=== PATIENT | male | born 1985 | race Caucasian/White ===

== ENCOUNTER 2020-12-14 05:21 | Emergency (ER) | payer OTHER, SELFPAY ==
[2020-12-14] VITALS (19 sets, daily range): BP systolic 106–146; BP diastolic 61–86; PULSE 63–88; RESP 12–20; TEMP 36.2–37.1; O2SAT 97–100; BMI 19.9
--- NOTE | ~2020-12-14 | CT_ITS ---
EXAMINATION: CT ABDOMEN AND PELVIS WITHOUT CONTRAST CLINICAL INFORMATION: Flank pain. Discussed with Dr. Posey, patient has right flank pain. COMPARISON: None TECHNIQUE: Multidetector volumetric imaging was performed from the superior aspect of the liver through the pubic symphysis. Sagittal and coronal reformatted images were obtained on the technologist's workstation. This CT examination was performed using dose optimization techniques as appropriate, variously including the following: *Automated exposure control *Adjustment of mA and/or kV according to patient size (this includes techniques or standardized protocols for targeted exams where dose is matched to indication/reason for exam; i.e. extremities or head) *Use of iterative reconstruction technique DLP: 410 mGy-cm FINDINGS: LUNG BASES: The visualized lung bases are unremarkable. LIVER, GALLBLADDER, AND BILIARY TREE: The liver is normal in size, shape, and attenuation. No focal hepatic lesion or biliary ductal dilatation is present. The gallbladder is unremarkable with no evidence of radiopaque gallstones, gallbladder wall thickening, or obvious pericholecystic inflammatory changes. PANCREAS: Unremarkable. No acute inflammatory changes seen. SPLEEN: Unremarkable. ADRENAL GLANDS: Unremarkable. KIDNEYS AND URETERS: Multiple nonobstructing right renal calculi are seen. The larger calculi include a 3 mm mid pole calculus, an additional 3 mm mid pole calculus. Multiple nonobstructing left renal calculi. This includes a 2 mm calculus in the left midpole. There is amorphous increased density in the region of the renal pyramids, which may reflect component of medullary nephrocalcinosis. 0.7 cm hyperdense focus in the upper pole left kidney, indeterminate. There is mild right hydroureteronephrosis. There is a 3-4 mm calculus in the distal right ureter. BLADDER: Underdistended, not well evaluated. GASTROINTESTINAL TRACT: The small and large bowel are unremarkable. No pathologically enlarged dilated loops is seen. Stomach is partially distended. The appendix is not well-visualized. Tubular structure containing air in the right lower abdomen/pelvis, may reflect a nondistended appendix.. ABDOMINAL WALL: No significant hernia is appreciated. LYMPH NODES: No lymphadenopathy seen. VASCULAR: Normal caliber aorta. PELVIC VISCERA: Within normal limits. OSSEOUS STRUCTURES: No acute osseous abnormality seen. CT/CT abdomen pelvis wo con IMPRESSION: Due to technical issues, images are not available on PACS. A limited 'wet read was done on the CT scanner in the emergency room. Verbal report given to Dr. Posey in the ER at 9:30 AM. * Mild right hydroureteronephrosis, with a 3-4 mm calculus in the distal right ureter. *Multiple bilateral nonobstructing renal calculi, as detailed above. *Faint densities in the region of the renal pelvis bilaterally, probably represent component of medullary nephrocalcinosis. *Appendix is not clearly visualized. Tubular structure seen in the right lower quadrant/pelvis, could represent the appendix. No ha inflammatory changes seen. *There is a 0.7 cm hyperdense lesion in the upper pole left kidney, indeterminate. Recommend further evaluation with follow-up ultrasound. Alexia GÓMEZ will convey this finding to the clinician.
--- NOTE | ~2020-12-14 | FL_ITS ---
EXAMINATION: XR FLUOROSCOPY WITH IMAGES CLINICAL INFORMATION: Right retrograde exam COMPARISON: Previous CT of the abdomen and pelvis from earlier the same day TECHNIQUE: Fluoroscopy performed by Dr. Dougie Mackay. Fluoroscopy time: 0.5 minutes Dose: 6 mgy. 2 saved fluoroscopic images Images: 2 FINDINGS: Images demonstrate a right internal ureteral stent in satisfactory position. FL/FL guidance in OR IMPRESSION: Fluoroscopic guidance for right ureteral stent placement.
[2020-12-14] MEDS: ondansetron HCL 4 MG/2 ML VIAL IVPUSH (05:43)
[2020-12-14] MEDS: Ketorolac Tromethamine 15 MG/ML VIAL IVPUSH (05:43)
[2020-12-14] MEDS: 0.9 % Sodium Chloride 1,000 ML 999 ML IV (05:53)
--- NOTE | 2020-12-14 05:56 | ED_ITS ---
HPI - Abdominal Pain General Chief Complaint: Abdominal Pain Stated Complaint: R FLANK PAIN Time Seen by Provider: 12/14/20 05:34 Source: patient Mode of arrival: EMS History of Present Illness HPI narrative: 35-year-old male who presents with history of renal colic and states that his right flank pain started the previous night with radiation into the right groin prompting him to seek assistance at [facility] where he states that ?did not do anything? and then he was discharged. Patient describes significant right flank pain without diarrhea, fevers, chills but multiple episodes of nausea and vomiting. Otherwise, he denies any urinary pain or burning. Related Data Allergies Allergy/AdvReac Type Severity Reaction Status Date / Time morphine Allergy Facial Verified 12/14/20 07:28 Swelling Review of Systems Review of Systems Pertinent positives and negatives as stated in HPI 10 point review of systems is otherwise negative. Physical Exam Vital Signs: Vital Signs: Last Vital Signs Temp 98.7 F 12/14/20 07:08 Pulse 69 12/14/20 09:08 Resp 20 12/14/20 09:08 BP 124/72 12/14/20 09:08 Pulse Ox 97 12/14/20 09:08 Body Mass Index 19.9 VITAL SIGNS: Reviewed. GENERAL: Well developed, well nourished, significant distress. HEAD: Normocephalic/atraumatic EYES: PERRLA, EOMI OROPHARYNX: no oral lesions noted, posterior pharynx clear NECK: Supple, no adenopathy LUNGS: Normal breath sounds. No adventitious sounds or accessory muscle use. SpO2<97> CARDIOVASCULAR: Regular rate and rhythm without noted murmurs ABDOMEN: Soft, mild tenderness on palpation of right flank with negative Rovsing's and no rebound on palpation of McBurney's, non-distended with bowel sounds. NEUROLOGIC: Alert and oriented x 4. Course Course Course Narrative: This is a 35-year-old male with history and clinical presen tation most consistent with renal colic and less likely appendicitis or testicular torsion. Initial labs inconsistent with appendicitis and CT scan is pending. Patient continues to be medicated for pain as well as nausea. Signed out to Dr Posey with plan to f/u CT and consult Urology. MDM - Abdominal Pain Lab Data Result diagrams: 12/14/20 05:55 12/14/20 07:11 Labs: Lab Results 12/14/20 12/14/20 12/14/20 Range/Units 05:55 05:55 06:13 WBC 9.1 (4.8-10.8) X10*3/uL RBC 4.90 (4.60-5.80) X10*6/uL Hgb 14.3 (14.0-18.0) g/dl Hct 42.8 (42-52) % MCV 87.3 (80-98) fL MCH 29.2 (27.0-33.0) pg MCHC 33.4 (31.0-36.0) g/dl RDW 11.4 (11.0-16.0) % Plt Count 131 L (160-400) X10*3/uL MPV 12.3 (9.4-12.4) fL Immature Gran % (Auto) 0.4 (0.0-0.4) % Neut % (Auto) 68.4 (45-73) % Lymph % (Auto) 24.5 (20-40) % [place] % (Auto) 6.4 (2-11) % Eos % (Auto) 0.1 (0-4) % Baso % (Auto) 0.2 (0-2) % Lymph # (Auto) 2.2 (1.2-4.9) X10*3/uL [place] # (Auto) 0.6 (0.1-1.2) X10*3/uL Eos # (Auto) 0.0 (0.0-0.4) X10*3/uL Baso # (Auto) 0.0 (0.0-0.2) X10*3/uL Abs Immat Gran (auto) 0.04 H (0.00-0.03) X10*3/uL Absolute Neuts (auto) 6.2 (2.0-8.3) X10*3/uL Absolute Nucleated RBC 0.000 (0.0-0.012) X10*3/uL Nucleated RBC % (auto) 0.0 (0.0-0.2) /100WBC Hold Blue Top SEE NOTE Sodium (135-145) mmol/L Potassium (3.3-5.1) mmol/L Chloride (96-108) mmol/L Carbon Dioxide (22-29) mmol/L Anion Gap (12-20) BUN (9-16) mg/dL Creatinine (0.5-1.4) mg/dL Estim Creat Clear Calc Estimated GFR Random Glucose (60-115) mg/dL Calcium (8.4-10.2) mg/dL Total Bilirubin (0.0-1.0) mg/dL AST (5-37) U/L ALT (0-40) U/L Alkaline Phosphatase (39-117) U/L Total Protein (6.5-8.0) g/dL Albumin (3.5-5.0) g/dL Urine Color YELLOW Urine Appearance HAZY Urine pH >= 9.0 H (5.0-8.0) Ur Specific [place] 1.010 (1.005-1.025) Urine Protein 1+ H (NEG-TRACE) MG/DL Urine Glucose (UA) NEG (NEG) MG/DL Urine Ketones NEG (NEG) MG/DL Urine Blood 3+ H (NEG) Urine Nitrite NEG (NEG) Ur Leukocyte Esterase NEG (NEG) Urine RBC 76-150 H (0) /HPF Urine WBC 0-2 (0-4) /HPF Ur Squamous Epith Cells 1+ /LPF Amorphous Sediment 3+ /LPF Urine Bacteria NONE /LPF Urine Mucus 1+ /LPF 12/14/20 Range/Units 07:11 WBC (4.8-10.8) X10*3/uL RBC (4.60-5.80) X10*6/uL Hgb (14.0-18.0) g/dl Hct (42-52) % MCV (80-98) fL MCH (27.0-33.0) pg MCHC (31.0-36.0) g/dl RDW (11.0-16.0) % Plt Count (160-400) X10*3/uL MPV (9.4-12.4) fL Immature Gran % (Auto) (0.0-0.4) % Neut % (Auto) (45-73) % Lymph % (Auto) (20-40) % [place] % (Auto) (2-11) % Eos % (Auto) (0-4) % Baso % (Auto) (0-2) % Lymph # (Auto) (1.2-4.9) X10*3/uL [place] # (Auto) (0.1-1.2) X10*3/uL Eos # (Auto) (0.0-0.4) X10*3/uL Baso # (Auto) (0.0-0.2) X10*3/uL Abs Immat Gran (auto) (0.00-0.03) X10*3/uL Absolute Neuts (auto) (2.0-8.3) X10*3/uL Absolute Nucleated RBC (0.0-0.012) X10*3/uL Nucleated RBC % (auto) (0.0-0.2) /100WBC Hold Blue Top Sodium 142 (135-145) mmol/L Potassium 3.8 (3.3-5.1) mmol/L Chloride 108 (96-108) mmol/L Carbon Dioxide 26 (22-29) mmol/L Anion Gap 12 (12-20) BUN 17 H (9-16) mg/dL Creatinine 0.84 (0.5-1.4) mg/dL Estim Creat Clear Calc 108.3 Estimated GFR > 60 Random Glucose 98 (60-115) mg/dL Calcium 8.4 (8.4-10.2) mg/dL Total Bilirubin 0.4 (0.0-1.0) mg/dL AST 20 (5-37) U/L ALT 22 (0-40) U/L Alkaline Phosphatase 74 (39-117) U/L Total Protein 6.6 (6.5-8.0) g/dL Albumin 4.2 (3.5-5.0) g/dL Urine Color Urine Appearance Urine pH (5.0-8.0) Ur Specific [place] (1.005-1.025) Urine Protein (NEG-TRACE) MG/DL Urine Glucose (UA) (NEG) MG/DL Urine Ketones (NEG) MG/DL Urine Blood (NEG) Urine Nitrite (NEG) Ur Leukocyte Esterase (NEG) Urine RBC (0) /HPF Urine WBC (0-4) /HPF Ur Squamous Epith Cells /LPF Amorphous Sediment /LPF Urine Bacteria /LPF Urine Mucus /LPF PMFSH Past Medical History Source: nursing notes reviewed Social History Social History Advance Directives: No
[2020-12-14] MEDS: fentaNYL citrate/PF 100 MCG/2 ML VIAL 25 MCG IVPUSH ×3 (06:04→08:09)
[2020-12-14 06:06] LABS: MANUAL DIFF FLAG NO
[2020-12-14 06:12] LABS: Basophils Percent Auto 0.2 % (0-2); Eosinophils Percent Auto 0.1 % (0-4); Hematocrit 42.8 % (42-52); Hemoglobin 14.3 g/dl (14.0-18.0); Imm Gran Abs Auto 0.04 X10*3/uL (0.00-0.03); Imm Gran Pct Auto 0.4 % (0.0-0.4); Lymphocytes Absolute Auto 2.2 X10*3/uL (1.2-4.9); Lymphocytes Percent Auto 24.5 % (20-40); Mean Corpuscular HGB Conc 33.4 g/dl (31.0-36.0); Mean Corpuscular Hemoglobin 29.2 pg (27.0-33.0); Mean Corpuscular Volume 87.3 fL (80-98); Mean Platelet Volume 12.3 fL (9.4-12.4); Monocytes Absolute Auto 0.6 X10*3/uL (0.1-1.2); Monocytes Percent Auto 6.4 % (2-11); Neutrophils Absolute Auto 6.2 X10*3/uL (2.0-8.3); Neutrophils Percent Auto 68.4 % (45-73); Platelet Count 131 X10*3/uL (160-400); Red Cell Distribution Width 11.4 % (11.0-16.0); White Blood Count 9.1 X10*3/uL (4.8-10.8)
[2020-12-14 06:32] LABS: Glucose Urine UA NEG (NEG); Leukocyte Esterase Urine NEG (NEG); Nitrite Urine NEG (NEG); PH >= 9.0 (5.0-8.0); Urine Blood 3+ (NEG); Urine Ketones NEG (NEG)
[2020-12-14 06:53] LABS: Appearance Urine HAZY; Color Urine YELLOW; Urine Protein 1+ MG/DL (NEG-TRACE)
--- NOTE | 2020-12-14 07:22 | PC.NURSE ---
Patient went to CT at this time, patient reports no pain relief after the second dose of fentanyl
[2020-12-14 07:32] LABS: Squamous Epithelial Cell Urine 1+ /LPF; WBC Urine 0-2 /HPF (0-4)
[2020-12-14 07:33] LABS: Amorphous Sediment Urine 3+ /LPF; Mucus Urine 1+ /LPF
[2020-12-14 07:54] LABS: Alanine Aminotransferase 22 U/L (0-40); Albumin Level 4.2 g/dL (3.5-5.0); Alkaline Phosphatase 74 U/L (39-117); Anion Gap 12 (12-20); Aspartate Amino Transferase 20 U/L (5-37); Bilirubin Total 0.4 mg/dL (0.0-1.0); Blood Urea Nitrogen 17 mg/dL (9-16); Calcium 8.4 mg/dL (8.4-10.2); Carbon Dioxide 26 mmol/L (22-29); Chloride 108 mmol/L (96-108); Creatinine Clr Calc Pharmacy 108.3; Estimated Glomerular Filt Rate > 60; Glucose Random 98 mg/dL (60-115); Potassium 3.8 mmol/L (3.3-5.1); Sodium 142 mmol/L (135-145); Total Protein 6.6 g/dL (6.5-8.0)
[2020-12-14] MEDS: diphenhydrAMINE HCL 50 MG/ML VIAL 25 MG IVPUSH (08:56)
[2020-12-14] MEDS: LORazepam 2 MG/ML VIAL 1 MG IVPUSH (08:56)
[2020-12-14] MEDS: Metoclopramide HCl 10 MG/2 ML VIAL IVPUSH (08:57)
[2020-12-14] MEDS: methylPREDNISolone Sod Succ 125 MG/2 ML VIAL 60 MG IVPUSH (11:06)
[2020-12-14] MEDS: 0.9 % Sodium Chloride 2,000 ML 999 ML IV (11:10)
[2020-12-14] MEDS: HYDROmorphone HCl 1 MG/ML SYRINGE IVPUSH (11:25)
[2020-12-14 13:49] LABS: COVID-19 Test Negative (Negative)
--- NOTE | 2020-12-14 13:56 | P.CNUR_ITS ---
History of Present Illness Consult details Consult date: 12/14/20 Narrative: Sanjay is a pleasant male. [place]ian-speaking. Accompanied by his who is translating for him Recurrent stone former Pain came on last night. Right side. Associated nausea vomiting. Unable to keep orals down Is responsive to injectable pain medication otherwise pain is at an 8/10. Calcium 8.4 Imaging shows distal right ureteric 5 mm stone with hydroureteronephrosis Discussed intervention Plan for ureteroscopy laser lithotripsy and stent placement [facility] Social History Social History Advance Directives: No Meds Allergies Allergy/AdvReac Type Severity Reaction Status Date / Time morphine Allergy Facial Verified 12/14/20 07:28 Swelling Active Medications: Current Medications Generic Name Dose Route Start Last Admin Trade Name Freq PRN Reason Stop Dose Admin Pharmacy Consult 1 each 12/14/20 11:14 Consult Rx Perform Med Rec MISCELLANE ONCE PRN Consult order Home Medications Medication Instructions Recorded Confirmed Last Taken Type No Known Home Meds 12/14/20 12/14/20 Unknown History Physical Exam Vital Signs: Vital Signs: Last Vital Signs Temp 97.4 F 12/14/20 10:00 Pulse 68 12/14/20 10:00 Resp 18 12/14/20 10:00 BP 114/74 12/14/20 10:00 Pulse Ox 98 12/14/20 10:00 Body Mass Index 19.9 Const: General: cooperative, healthy appearing, comfortable and no acute distress Nutritional Appearance: average body habitus Orientation/ consciousness: oriented to person, oriented to place and oriented to time Eyes: General: appearance normal, both eyes and all related structures Chest: Chest palpation & inspection: normal inspection of the chest Resp: Effort & Inspection: normal respiratory effort Cardio: Rate: regular rate GI: Inspection: Yes normal to inspection Skin: Hair: normal Neuro: General: oriented to person, oriented to place and oriented to time Extrem: General: Yes normal to inspection Results Labs Result diagrams: 12/14/20 05:55 12/14/20 07:11 Labs: Abnormal lab results 12/14/20 12/14/20 12/14/20 Range/Units 05:55 06:13 07:11 Plt Count 131 L (160-400) X10*3/uL Abs Immat Gran (auto) 0.04 H (0.00-0.03) X10*3/uL BUN 17 H (9-16) mg/dL Urine pH >= 9.0 H (5.0-8.0) Urine Protein 1+ H (NEG-TRACE) MG/DL Urine Blood 3+ H (NEG) Urine RBC 76-150 H (0) /HPF Short CBC 12/14/20 Range/Units 05:55 WBC 9.1 (4.8-10.8) X10*3/uL Hgb 14.3 (14.0-18.0) g/dl Hct 42.8 (42-52) % Plt Count 131 L (160-400) X10*3/uL BMP 12/14/20 07:11 Sodium 142 Potassium 3.8 Chloride 108 Carbon Dioxide 26 BUN 17 H Creatinine 0.84 Calcium 8.4 Liver Function 12/14/20 Range/Units 07:11 Total Bilirubin 0.4 (0.0-1.0) mg/dL AST 20 (5-37) U/L ALT 22 (0-40) U/L Alkaline Phosphatase 74 (39-117) U/L Albumin 4.2 (3.5-5.0) g/dL Urine 12/14/20 Range/Units 06:13 Urine Color YELLOW Urine Appearance HAZY Urine pH >= 9.0 H (5.0-8.0) Ur Specific [place] 1.010 (1.005-1.025) Urine Protein 1+ H (NEG-TRACE) MG/DL Urine Glucose (UA) NEG (NEG) MG/DL All other labs normal. Assessment and Plan (1) Ureterolithiasis: Status: Acute Ureteroscopy We discussed the nature of the decision and reasonable alternatives for performing the above surgery. Interventions include chemical dissolution, ESWL, ureteroscopy with laser lithotripsy and stent placement, PCNL. Options such as medical therapy were discussed. The relative uncertainties and benefits related to each alternate procedure were adequately discussed. General surgical risks including, but not limited to, pain, bleeding, infection, myocardial infarction, pulmonary embolus, deep vein thrombosis and cerebrovascular accident which may result in further hospitalization were discussed. Full disclosure of the procedure as well as all major risks, benefits and complications were discussed including but not limited to damage to the urethra, bladder and kidney infection, damage to the ureter, stent migration or malposition, scarring to the renal pelvis, remnant stone fragments, subsequent stone passage with need for secondary procedures. The overall secondary procedure rate is approximately 10-15%. The success rate of the procedure was discussed. Success of the procedure in the short-term does not necessarily guarantee that long-term success will be maintained. Suitable follow up will need to be maintained. The patient showed understanding of discussion and wishes to proceed with - cystoscopy, retrograde, ureteroscopy, possible lithotripsy/stone basketing and stent on the right side
[2020-12-14] MEDS: levoFLOXacin 500 MG TABLET PO (16:29)
--- NOTE | 2020-12-14 16:38 | P.CONAN_ITS ---
[facility] Active Problems Active Problems: All Active Problems (Updated 12/14/20 @ 11:17 by Neli washburn DO) Abdominal pain (Acute) Nausea & vomiting (Acute) Ureterolithiasis (Acute) Social History Social History Advance Directives: No Meds Allergies Allergy/AdvReac Type Severity Reaction Status Date / Time morphine Allergy Facial Verified 12/14/20 07:28 Swelling Active Medications: Current Medications Generic Name Dose Route Start Last Admin Trade Name Freq PRN Reason Stop Dose Admin Pharmacy Consult 1 each 12/14/20 11:14 Consult Rx Perform Med Rec MISCELLANE ONCE PRN Consult order Home Medications Medication Instructions Recorded Confirmed Last Taken Type No Known Home Meds 12/14/20 12/14/20 Unknown History Exam Exam Date and Time: December 14, 2020 1638 Height,Weight and Vital Signs: Height 5 ft 9 in Weight 61.235 kg Last Vital Signs Temp 98.2 F 12/14/20 14:00 Pulse 68 12/14/20 14:00 Resp 18 12/14/20 14:00 BP 110/66 12/14/20 14:00 Pulse Ox 98 12/14/20 14:00 Pertinent Lab Results Pertinent Lab Results: Laboratory Tests 12/14/20 12/14/20 12/14/20 05:55 05:55 06:13 WBC 9.1 RBC 4.90 Hgb 14.3 Hct 42.8 MCV 87.3 MCH 29.2 MCHC 33.4 RDW 11.4 Plt Count 131 L MPV 12.3 Immature Gran % (Auto) 0.4 Neut % (Auto) 68.4 Lymph % (Auto) 24.5 [place] % (Auto) 6.4 Eos % (Auto) 0.1 Baso % (Auto) 0.2 Lymph # (Auto) 2.2 [place] # (Auto) 0.6 Eos # (Auto) 0.0 Baso # (Auto) 0.0 Abs Immat Gran (auto) 0.04 H Absolute Neuts (auto) 6.2 Absolute Nucleated RBC 0.000 Nucleated RBC % (auto) 0.0 Hold Blue Top SEE NOTE Sodium Potassium Chloride Carbon Dioxide Anion Gap BUN Creatinine Estim Creat Clear Calc Estimated GFR Random Glucose Calcium Total Bilirubin AST ALT Alkaline Phosphatase Total Protein Albumin Urine Color YELLOW Urine Appearance HAZY Urine pH >= 9.0 H Ur Specific [place] 1.010 Urine Protein 1+ H Urine Glucose (UA) NEG Urine Ketones NEG Urine Blood 3+ H Urine Nitrite NEG Ur Leukocyte Esterase NEG Urine RBC 76-150 H Urine WBC 0-2 Ur Squamous Epith Cells 1+ Amorphous Sediment 3+ Urine Bacteria NONE Urine Mucus 1+ COVID-19 (STEVE) COVID-19 Clin Com 12/14/20 12/14/20 07:11 13:25 WBC RBC Hgb Hct MCV MCH MCHC RDW Plt Count MPV Immature Gran % (Auto) Neut % (Auto) Lymph % (Auto) [place] % (Auto) Eos % (Auto) Baso % (Auto) Lymph # (Auto) [place] # (Auto) Eos # (Auto) Baso # (Auto) Abs Immat Gran (auto) Absolute Neuts (auto) Absolute Nucleated RBC Nucleated RBC % (auto) Hold Blue Top Sodium 142 Potassium 3.8 Chloride 108 Carbon Dioxide 26 Anion Gap 12 BUN 17 H Creatinine 0.84 Estim Creat Clear Calc 108.3 Estimated GFR > 60 Random Glucose 98 Calcium 8.4 Total Bilirubin 0.4 AST 20 ALT 22 Alkaline Phosphatase 74 Total Protein 6.6 Albumin 4.2 Urine Color Urine Appearance Urine pH Ur Specific [place] Urine Protein Urine Glucose (UA) Urine Ketones Urine Blood Urine Nitrite Ur Leukocyte Esterase Urine RBC Urine WBC Ur Squamous Epith Cells Amorphous Sediment Urine Bacteria Urine Mucus COVID-19 (STEVE) Negative COVID-19 Clin Com See Note Airway Mallampati Class: II TM Dist: >3cm Neck ROM: Full Loose/Missing/Broken Teeth: No Heart: RRR Lungs: NL Assessment and Plan Assessment Anesthesia Assessment: Anesthesia Plan Discussed and Chart Reviewed Final Anesthetic Review NPO: Yes ASA Class: II Final Preanesthetic Review: No Changes in Pt Med Stat, Meds/Allgs Chart Reviewed, Consent Obtained/Reviewed and Anes Risks/Benef Reviewed Patient Risk: Low Procedure Risk: Low Anesthetic Plan Anesthetic Plan: GA Disposition: Standard PACU
--- NOTE | 2020-12-14 16:41 | MHC.SHP ---
Pre-Procedural Eval Section A The patient is an INPATIENT: No Changes since office visit: No Cold of Flu in the past 2 weeks, No New Medical Problems, No Changes in Medication and No Patient answered all questions The History & Physical has been completed within 30 days and I have reviewed it.: Yes Section B Chief Complaint: R FLANK PAIN Allergies: Allergies Allergy/AdvReac Type Severity Reaction Status Date / Time morphine Allergy Facial Verified 12/14/20 07:28 Swelling Plan Diagnosis/Plan: Unchanged (right sided ureteroscopy, laser and stent) I have reviewed the history and physical and performed a pertinent physical examination on my patient. No changes have occurred unless specified.
[2020-12-14] MEDS: HYDROmorphone HCl 0.5 MG/0.5 ML SYRINGE IVPUSH (16:45)
--- NOTE | 2020-12-14 18:06 | P.OP_ITS ---
Operative Note Operative Note Date of Service: 12/14/20 Narrative: PreOperative Diagnosis: Distal right ureteric stone Post Operative Diagnosis: Distal right ureteric stone Procedure: - cystoscopy, retrograde - dilatation of ureteric orifice under fluoroscopy - ureteroscopy, stone basketing - stent placement Surgeon: Dr Dougie Mackay Anesthesia: General Indications for procedure: 35-year-old male. Admitted through emergency room with right-sided pain. This was not controlled with oral or IV medications. CT scan showed 2-3 mm distal ri ght ureteric stone and right mild to moderate hydroureteronephrosis. Creatinine elevated. Recommended intervention with stone basketing and removal of stone, and stent placement. Procedure: After informed consent was verified patient was brought to the operating placed in supine position. Anesthesia was administered per protocol. Patient was placed in modified dorsal lithotomy position and prepped and draped in a sterile fashion. Safety pause time-out and side of surgery confirmed. Antibiotics confirmed. Twenty-two Upper Sorbian cystoscope inserted per urethra. Right ureteric orifice was cannulated and retrograde performed. Filling defects seen. Sensor guidewire placed. Rigid ureteral scope placed. Stone was encountered. Using a 2.4 [place] 0 tip basket the stone was grasped and removed we sent for analysis. A 6 Upper Sor[place] by 24 cm stent was then placed using a regular 22 Upper Sor[place] cystoscope. Good coil seen in kidney and bladder. Bladder was emptied He tolerated the procedure well was extubated in operating room transferred in a stable condition to the recovery area. Pathology: Stone Drains: 6 Upper Sor[place] by 24 cm stent
[2020-12-14] MEDS: fentaNYL citrate/PF 100 MCG/2 ML VIAL 50 MCG IVPUSH (18:40)
[2020-12-14] MEDS: Acetaminophen 325 MG TABLET 975 MG PO (19:00)
[2020-12-14] MEDS: traMADoL HCL 50 MG TABLET PO (19:02)
[2020-12-14] MEDS: Phenazopyridine HCL 100 MG TABLET PO (19:03)
== END 2020-12-14 20:02 | disposition home or self-care (01) ==
PROVIDERS: Emergency Medicine; Urology; Emergency Provider Student in an Organized Health Care Education/Training Program
PROC: (CPT 52352; principal; 2020-12-14 17:10)
DX: N13.2 Hydronephrosis with renal and ureteral calculous obstruction (principal); Z20.822 Contact with and (suspected) exposure to COVID-19; R11.2 Nausea with vomiting, unspecified; Z87.442 Personal history of urinary calculi
CPT/HCPCS: 52352; 52332; 36415; 74176; 80053; 81001; 82365; 85025; 87635; 88300; 96360; 96361; 96374; 96375; 96376; 99284; 99285; C1769; C2617; J1170; J1200; J1885; J2060; J2250; J2405; J2765; J2930; J3010; Q9967

== ENCOUNTER 2020-12-17 11:25 | Emergency (ER) | payer OTHER, SELFPAY ==
--- NOTE | ~2020-12-17 | CT_ITS ---
EXAMINATION: CT ABDOMEN AND PELVIS WITHOUT CONTRAST CLINICAL INFORMATION: Status post right renal internal ureteric stent placement. COMPARISON: CT of the abdomen and pelvis done on 12/14/2020. TECHNIQUE: Multidetector volumetric imaging was performed from the superior aspect of the liver through the pubic symphysis. Sagittal and coronal reformatted images were obtained on the technologist's workstation. This CT examination was performed using dose optimization techniques as appropriate, variously including the following: *Automated exposure control *Adjustment of mA and/or kV according to patient size (this includes techniques or standardized protocols for targeted exams where dose is matched to indication/reason for exam; i.e. extremities or head) *Use of iterative reconstruction technique DLP: 345.0 mGy-cm FINDINGS: LUNG BASES: The visualized lung bases are unremarkable. LIVER, GALLBLADDER, AND BILIARY TREE: The liver is normal in size, shape, and attenuation. No focal hepatic lesion or biliary ductal dilatation is present. The gallbladder is unremarkable with no evidence of radiopaque gallstones, gallbladder wall thickening, or obvious pericholecystic inflammatory changes. PANCREAS: Unremarkable. SPLEEN: Unremarkable. ADRENAL GLANDS: Unremarkable. KIDNEYS AND URETERS: Multiple punctate bilateral 1 to 2 mm size nonobstructing renal calculi are present near the tip of the renal pyramids, similar to prior study. Previously documented right distal ureteric calculus and associated mild right-sided hydroureteronephrosis shows interval resolution, status post interval placement of right internal ureteric stent and likely interval removal of the calculus. Please correlate with detailed surgical history. There is no evidence of any perinephric or periureteric hematoma or inflammatory changes present. The position of the ureteric stent is satisfactory. No significant change within the left kidney and/or left renal collecting system since the prior study. BLADDER: Unremarkable. GASTROINTESTINAL TRACT: The small and large bowel are unremarkable. Nonvisualized appendix. There are radiopaque sutures identified at the level of the base of the cecum likely represent changes secondary to prior appendicectomy. ABDOMINAL WALL: No significant hernia is appreciated. LYMPH NODES: Normal. VASCULAR: Unremarkable. PELVIC VISCERA: Unremarkable. OSSEOUS STRUCTURES: Mild diffuse osteopenia. CT/CT abdomen pelvis wo con IMPRESSION: 1. Compared to most recent prior CT of the abdomen and pelvis dated 12/24/2020, previously documented distal right ureteric obstructing calculus and associated proximal right-sided hydroureteronephrosis show interval resolution. Status post right-sided internal ureteric stent placement showing satisfactory position. 2. Bilateral nonobstructing tiny punctate renal calculi, consistent with nephrocalcinosis. 3. Evidence of prior appendicectomy. Please correlate with clinical history. 4. No new abnormalities.
[2020-12-17 12:30] VITALS: BP 97/60; PULSE 82; RESP 19; TEMP 36.7; O2SAT 98; BMI 19.9
[2020-12-17 12:51] LABS: Glucose Urine UA NEG (NEG); Leukocyte Esterase Urine TRACE (NEG); Nitrite Urine NEG (NEG); PH 8.5 (5.0-8.0); UACC Culture Trigger YES; Urine Blood 3+ (NEG); Urine Ketones NEG (NEG)
[2020-12-17 12:54] LABS: Appearance Urine CLOUDY; Color Urine AMBER; Urine Protein 1+ MG/DL (NEG-TRACE)
[2020-12-17 13:00] LABS: Mucus Urine 1+ /LPF; RBC Urine TNTC /HPF (0); Squamous Epithelial Cell Urine TRACE /LPF
--- NOTE | 2020-12-17 14:55 | ED.GENADULT ---
HPI - General Adult General Chief complaint: General Medical Stated complaint: s/p surgery, pain,diarrhea Time Seen by Provider: 12/17/20 14:30 Source: patient Mode of arrival: ambulatory History of Present Illness HPI narrative: 35-year-old male with a recent past medical history I have right distal ureter stone S/P ureteroscopy with stent placement on 12/14/[address] Mackay presenting to the ED complaining of right-sided flank/RLQ abdominal pain radiating to groin since this morning with associated nausea and decreased p.o. intake. States residual pain since procedure however worsened today. Also reports dysuria and hematuria. Denies fever, chills, vomiting, diarrhea Onset (ago): day(s) Related Data Previous Rx's Medication Instructions Recorded phenazopyridine [Pyridium] 100 mg PO TID PRN 4 Days #12 tab 12/14/20 phenazopyridine [Pyridium] 100 mg PO TID PRN 4 Days #12 tab 12/14/20 tamsulosin 0.4 mg PO BEDTIME 14 Days #14 cap 12/14/20 tamsulosin 0.4 mg PO BEDTIME 14 Days #14 cap 12/14/20 tramadol 50 mg PO Q6H PRN #14 tab 12/14/20 tramadol 50 mg PO Q6H PRN #14 tab 12/14/20 lorazepam 2 mg tablet 1 mg PO Q6H PRN #12 tab 12/15/20 oxycodone-acetaminophen 5 mg-325 1 tab PO Q8H PRN 7 Days #10 tab 12/15/20 mg tablet Allergies Allergy/AdvReac Type Severity Reaction Status Date / Time morphine Allergy Facial Verified 12/14/20 07:28 Swelling Review of Systems Review of Systems: Constitutional: No Fever, No Chills, No Fatigue, No Malaise Cardiovascular: No Chest Pain, No SOB Respiratory: No Cough, No Dyspnea Gastrointestinal: + Nausea, No Vomiting, No Diarrhea, No Constipation, + Abdominal pain Genitourinary: + Dysuria, No Urinary Frequency, + Hematuria, + Flank Pain, No Urinary Flow Changes Musculoskeletal: No joint pain, No Myalgias, No Joint Swelling Skin: No Skin Lesions, No rash Yes all other systems are reviewed and are negative PMFSH Past Medical History Attestation statement: The following information was validated with the patient. Medical History (Updated 12/17/20 @ 16:30 by MARYAN Reed) Kidney stones Social History Social History Alcohol intake: never Smoking Status: Never smoker Use of substances other than those prescribed or required for medical reasons: No Advance Directives: No Physical Exam Vital Signs: Vital Signs: Last Vital Signs Temp 98.1 F 12/17/20 12:30 Pulse 57 12/17/20 16:22 Resp 16 12/17/20 16:22 BP 106/53 L 12/17/20 16:22 Pulse Ox 99 12/17/20 16:22 Body Mass Index 19.9 Const: General: cooperative, healthy appearing and no acute distress Orientation/consciousness: patient oriented x3 Limitations: no limitations HENMT: Head: Yes normal to inspection Ears: hearing grossly normal bilaterally General nose exam: Normal external nose present Face and sinus: Yes normal facial exam Eyes: General: appearance normal, both eyes and all related structures EOM: EOMs intact bilaterally Neck: Neck: Yes normal visual inspection and Yes no meningeal signs Resp: Effort & Inspection: normal respiratory effort Cardio: Rate: regular rate GI: Inspection: Yes normal to inspection Palpation (GI): Soft to palpation, Tenderness to palpation present (GI) in the RLQ and suprapubicly, no guarding and not rigid : Other: + right inguinal tenderness, no appreciable hernia. No testicular/scrotal tenderness/lesions/erythema or swelling General: Yes CVA tenderness on the right Scrotum: no inguinal hernias Skin: Rashes: no rashes Wounds: no wounds Neuro: General: patient oriented x3 and no meningeal signs Gait exam (Neuro): Normal gait present Extrem: General: Yes normal to inspection Course Course Course Narrative: -no leukocytosis, renal function WNL, labs otherwise unremarkable -UA with multiple RBCs as expected, not infected CT abdomen pelvis wo con IMPRESSION: 1. Compared to most recent prior CT of the abdomen and pelvis dated 12/24/2020, previously documented distal right ureteric obstructing calculus and associated proximal right-sided hydroureteronephrosis show interval resolution. Status post right-sided internal ureteric stent placement showing satisfactory position. 2. Bilateral nonobstructing tiny punctate renal calculi, consistent with nephrocalcinosis. 3. Evidence of prior appendicectomy. Please correlate with clinical history. 4. No new abnormalities. >> on re-evaluation patient reports symptomatic improvement, is playing on phone, requesting work note. Results discussed including strict return precautions and follow-up with Urology. He verbalized understanding states he will call tomorrow. Medical Decision Making MDM Narrative Medical decision making narrative: 35-year-old male with a recent past medical history I have right distal ureter stone S/P ureteroscopy with stent placement on 12/14/[address] Mackay presenting to the ED complaining of right-sided flank/RLQ abdominal pain radiating to groin since this morning with associated nausea and decreased p.o. intake. On exam VSS, NAD, physical exam as above. Concern for stent complications/migration vs postprocedural pain vs persistent stone/hydro vs UTI. Lower concern for appendicitis, testicular torsion/epididymitis/orchitis or hernia without testicular tenderness on exam and focal inguinal tenderness, whhic is likely from procedure Plan: Labs, UA, CT, IVF, pain control, reassess Lab Data Result diagrams: 12/17/20 14:54 12/17/20 14:54 Labs: Lab Results 12/17/20 12/17/20 12/17/20 Range/Units 12:43 14:54 14:54 WBC 6.4 (4.8-10.8) X10*3/uL RBC 5.50 (4.60-5.80) X10*6/uL Hgb 16.2 (14.0-18.0) g/dl Hct 47.1 (42-52) % MCV 85.6 (80-98) fL MCH 29.5 (27.0-33.0) pg MCHC 34.4 (31.0-36.0) g/dl RDW 11.3 (11.0-16.0) % Plt Count 161 (160-400) X10*3/uL MPV 11.0 (9.4-12.4) fL Immature Gran % (Auto) 0.2 (0.0-0.4) % Neut % (Auto) 57.8 (45-73) % Lymph % (Auto) 31.0 (20-40) % [place] % (Auto) 9.9 (2-11) % Eos % (Auto) 0.8 (0-4) % Baso % (Auto) 0.3 (0-2) % Lymph # (Auto) 2.0 (1.2-4.9) X10*3/uL [place] # (Auto) 0.6 (0.1-1.2) X10*3/uL Eos # (Auto) 0.1 (0.0-0.4) X10*3/uL Baso # (Auto) 0.0 (0.0-0.2) X10*3/uL Abs Immat Gran (auto) 0.01 (0.00-0.03) X10*3/uL Absolute Neuts (auto) 3.7 (2.0-8.3) X10*3/uL Absolute Nucleated RBC 0.000 (0.0-0.012) X10*3/uL Nucleated RBC % (auto) 0.0 (0.0-0.2) /100WBC Hold Blue Top Sodium 141 (135-145) mmol/L Potassium 4.8 D (3.3-5.1) mmol/L Chloride 102 (96-108) mmol/L Carbon Dioxide 28 (22-29) mmol/L Anion Gap 16 (12-20) BUN 15 (9-16) mg/dL Creatinine 0.76 (0.5-1.4) mg/dL Estim Creat Clear Calc 119.7 Estimated GFR > 60 Random Glucose 86 (60-115) mg/dL Calcium 10.1 D (8.4-10.2) mg/dL Total Bilirubin 0.7 (0.0-1.0) mg/dL Direct Bilirubin 0.2 (0.0-0.5) mg/dL AST 24 (5-37) U/L ALT 24 (0-40) U/L Alkaline Phosphatase 76 (39-117) U/L Total Protein 8.2 H D (6.5-8.0) g/dL Albumin 4.9 (3.5-5.0) g/dL Lipase 12 (8-78) U/L Urine Color [place] Urine Appearance CLOUDY Urine pH 8.5 H (5.0-8.0) Ur Specific [place] 1.020 (1.005-1.025) Urine Protein 1+ H (NEG-TRACE) MG/DL Urine Glucose (UA) NEG (NEG) MG/DL Urine Ketones NEG (NEG) MG/DL Urine Blood 3+ H (NEG) Urine Nitrite NEG (NEG) Ur Leukocyte Esterase TRACE H (NEG) Urine RBC TNTC H (0) /HPF Urine WBC 1-4 (0-4) /HPF Ur Squamous Epith Cells TRACE /LPF Urine Bacteria NONE /LPF Urine Mucus 1+ /LPF 12/17/20 Range/Units 14:54 WBC (4.8-10.8) X10*3/uL RBC (4.60-5.80) X10*6/uL Hgb (14.0-18.0) g/dl Hct (42-52) % MCV (80-98) fL MCH (27.0-33.0) pg MCHC (31.0-36.0) g/dl RDW (11.0-16.0) % Plt Count (160-400) X10*3/uL MPV (9.4-12.4) fL Immature Gran % (Auto) (0.0-0.4) % Neut % (Auto) (45-73) % Lymph % (Auto) (20-40) % [place] % (Auto) (2-11) % Eos % (Auto) (0-4) % Baso % (Auto) (0-2) % Lymph # (Auto) (1.2-4.9) X10*3/uL [place] # (Auto) (0.1-1.2) X10*3/uL Eos # (Auto) (0.0-0.4) X10*3/uL Baso # (Auto) (0.0-0.2) X10*3/uL Abs Immat Gran (auto) (0.00-0.03) X10*3/uL Absolute Neuts (auto) (2.0-8.3) X10*3/uL Absolute Nucleated RBC (0.0-0.012) X10*3/uL Nucleated RBC % (auto) (0.0-0.2) /100WBC Hold Blue Top SEE NOTE Sodium (135-145) mmol/L Potassium (3.3-5.1) mmol/L Chloride (96-108) mmol/L Carbon Dioxide (22-29) mmol/L Anion Gap (12-20) BUN (9-16) mg/dL Creatinine (0.5-1.4) mg/dL Estim Creat Clear Calc Estimated GFR Random Glucose (60-115) mg/dL Calcium (8.4-10.2) mg/dL Total Bilirubin (0.0-1.0) mg/dL Direct Bilirubin (0.0-0.5) mg/dL AST (5-37) U/L ALT (0-40) U/L Alkaline Phosphatase (39-117) U/L Total Protein (6.5-8.0) g/dL Albumin (3.5-5.0) g/dL Lipase (8-78) U/L Urine Color Urine Appearance Urine pH (5.0-8.0) Ur Specific [place] (1.005-1.025) Urine Protein (NEG-TRACE) MG/DL Urine Glucose (UA) (NEG) MG/DL Urine Ketones (NEG) MG/DL Urine Blood (NEG) Urine Nitrite (NEG) Ur Leukocyte Esterase (NEG) Urine RBC (0) /HPF Urine WBC (0-4) /HPF Ur Squamous Epith Cells /LPF Urine Bacteria /LPF Urine Mucus /LPF Discharge Plan Discharge Clinical Impression: Other acute postprocedural pain Patient Disposition: Home, Self-Care Instructions: Flank Pain (ED) Additional Instructions: Your blood work was reassuring today in the ED Your CT scan showed improvement of your previously obstructing stone, and your stent is in proper location. It is important for you to follow-up with urology, call tomorrow Stay hydrated at home Continue taking previously prescribed medications If symptoms persist or worsen, he had of fever, nausea/vomiting, pain comes unbearable return to the ED Prescriptions: No Action oxycodone-acetaminophen [Percocet] 5-325 mg tablet 1 tab PO Q8H PRN (Reason: pain) 7 Days Qty: 10 RF: 0 lorazepam [Ativan] 2 mg tablet 1 mg PO Q6H PRN (Reason: anxiety) Qty: 12 RF: 0 phenazopyridine [Pyridium] 100 mg tablet 100 mg PO TID PRN (Reason: spasm) 4 Days Qty: 12 RF: 0 tramadol 50 mg tablet 50 mg PO Q6H PRN (Reason: pain (scale score 4-6)) Qty: 14 RF: 0 tamsulosin 0.4 mg capsule 0.4 mg PO BEDTIME 14 Days Qty: 14 RF: 0 phenazopyridine [Pyridium] 100 mg tablet 100 mg PO TID PRN (Reason: spasm) 4 Days Qty: 12 RF: 0 tramadol 50 mg tablet 50 mg PO Q6H PRN (Reason: pain (scale score 4-6)) Qty: 14 RF: 0 tamsulosin 0.4 mg capsule 0.4 mg PO BEDTIME 14 Days Qty: 14 RF: 0 Referrals: Dougie Mackay MD [Physician] - 2 days
[2020-12-17] MEDS: 0.9 % Sodium Chloride 1,000 ML 999 ML IVCONT (14:57)
[2020-12-17] MEDS: Ketorolac Tromethamine 15 MG/ML VIAL IVPUSH (14:57)
[2020-12-17] MEDS: ondansetron HCL 4 MG/2 ML VIAL IVPUSH (14:57)
[2020-12-17 14:58] LABS: MANUAL DIFF FLAG NO
[2020-12-17 14:59] LABS: Basophils Percent Auto 0.3 % (0-2); Eosinophils Absolute Auto 0.1 X10*3/uL (0.0-0.4); Eosinophils Percent Auto 0.8 % (0-4); Hematocrit 47.1 % (42-52); Hemoglobin 16.2 g/dl (14.0-18.0); Imm Gran Abs Auto 0.01 X10*3/uL (0.00-0.03); Imm Gran Pct Auto 0.2 % (0.0-0.4); Mean Corpuscular HGB Conc 34.4 g/dl (31.0-36.0); Mean Corpuscular Hemoglobin 29.5 pg (27.0-33.0); Mean Corpuscular Volume 85.6 fL (80-98); Monocytes Absolute Auto 0.6 X10*3/uL (0.1-1.2); Monocytes Percent Auto 9.9 % (2-11); Neutrophils Absolute Auto 3.7 X10*3/uL (2.0-8.3); Neutrophils Percent Auto 57.8 % (45-73); Platelet Count 161 X10*3/uL (160-400); Red Cell Distribution Width 11.3 % (11.0-16.0); White Blood Count 6.4 X10*3/uL (4.8-10.8)
[2020-12-17 15:31] LABS: Alanine Aminotransferase 24 U/L (0-40); Albumin Level 4.9 g/dL (3.5-5.0); Alkaline Phosphatase 76 U/L (39-117); Anion Gap 16 (12-20); Aspartate Amino Transferase 24 U/L (5-37); Bilirubin Direct 0.2 mg/dL (0.0-0.5); Bilirubin Total 0.7 mg/dL (0.0-1.0); Blood Urea Nitrogen 15 mg/dL (9-16); Calcium 10.1 mg/dL (8.4-10.2); Carbon Dioxide 28 mmol/L (22-29); Chloride 102 mmol/L (96-108); Creatinine Clr Calc Pharmacy 119.7; Estimated Glomerular Filt Rate > 60; Glucose Random 86 mg/dL (60-115); Lipase 12 U/L (8-78); Potassium 4.8 mmol/L (3.3-5.1); Sodium 141 mmol/L (135-145); Total Protein 8.2 g/dL (6.5-8.0)
[2020-12-17 16:22] VITALS: BP 106/53; PULSE 57; RESP 16; O2SAT 99
== END 2020-12-17 16:45 | disposition home or self-care (01) ==
PROVIDERS: Physician Assistant; Emergency Provider Emergency Medicine Emergency Medical Services; PCP Internal Medicine
DX: T83.84XA Pain due to genitourinary prosthetic devices, implants and grafts, initial encounter (principal); R10.31 Right lower quadrant pain; X58.XXXA Exposure to other specified factors, initial encounter; Z87.442 Personal history of urinary calculi
CPT/HCPCS: 36415; 74176; 80048; 80076; 81001; 81003; 83690; 85025; 87086; 96361; 96374; 96375; 99284; J1885; J2405

== ENCOUNTER → 2020-12-22 12:54 | Outpatient (BNVA) | payer OTHER, SELFPAY | PROVIDERS: PCP Internal Medicine; Visit Provider Urology | DX: N20.0 Calculus of kidney (principal) | CPT/HCPCS: 52310; 99212 ==

== ENCOUNTER 2022-06-30 18:16 | Emergency (ER) | payer OTHER, SELFPAY ==
[2022-06-30] VITALS (7 sets, daily range): BP systolic 103–119; BP diastolic 47–62; PULSE 52–88; RESP 11–24; TEMP 35.8–37.1; O2SAT 94–100; BMI 22.4
--- NOTE | ~2022-06-30 | CT_ITS ---
EXAMINATION: CT ABDOMEN AND PELVIS WITHOUT CONTRAST CLINICAL INFORMATION: Right flank pain. Question stone COMPARISON: CT abdomen and pelvis 12/17/2020 TECHNIQUE: Multidetector volumetric imaging was performed from the superior aspect of the liver through the pubic symphysis. Sagittal and coronal reformatted images were obtained on the technologist's workstation. This CT examination was performed using dose optimization techniques as appropriate, variously including the following: *Automated exposure control *Adjustment of mA and/or kV according to patient size (this includes techniques or standardized protocols for targeted exams where dose is matched to indication/reason for exam; i.e. extremities or head) *Use of iterative reconstruction technique DLP: 413 mGy-cm FINDINGS: LUNG BASES: The visualized lung bases are unremarkable. LIVER, GALLBLADDER, AND BILIARY TREE: The liver is normal in size, shape, and attenuation. No focal hepatic lesion or biliary ductal dilatation is present. The gallbladder is unremarkable with no evidence of radiopaque gallstones, gallbladder wall thickening, or obvious pericholecystic inflammatory changes. PANCREAS: Unremarkable. SPLEEN: Unremarkable. ADRENAL GLANDS: Unremarkable. KIDNEYS AND URETERS: 2-3 mm right proximal ureteral calculus. Mild right hydronephrosis. No perinephric stranding. No additional ureteral calculi. Couple of punctate 1-2 mm nonobstructing calculi in the right lower pole. Small 2 mm nonobstructing left upper pole renal calculus. 6 mm hyperdense left upper pole renal lesion, unchanged, too small to characterize, likely a small hyperdense cyst. No other renal lesion. BLADDER: Unremarkable. GASTROINTESTINAL TRACT: Suture material at the cecal base consistent with prior appendectomy. Correlate with surgical history. No dilated bowel loops. No bowel wall thickening. No ascites or free air. ABDOMINAL WALL: No significant hernia is appreciated. LYMPH NODES: No lymphadenopathy. VASCULAR: Normal caliber abdominal aorta. PELVIC VISCERA: Unremarkable. OSSEOUS STRUCTURES: No acute fracture or suspicious osseous lesion. Chronic bilateral L5 pars defects with minimal grade 1 [address]hesis at L5-S1. CT/CT abdomen pelvis wo IV con IMPRESSION: 1. 2-3 mm right proximal ureteral calculus with mild right hydronephrosis. 2. Small nonobstructing bilateral renal calculi.
--- NOTE | 2022-06-30 18:25 | ED_ITS ---
HPI - Abdominal Pain General Chief Complaint: Abdominal Pain Stated Complaint: KIDNEY PAIN Time Seen by Provider: 06/30/22 18:24 Source: patient Mode of arrival: EMS Limitations: no limitations History of Present Illness HPI narrative: Patient with history of kidney stone comes here with r flank pain started an luis r prior to arrival with nausea pain radiating to the right lower abdomen no fever no chills no hematuria Related Data Previous Rx's Medication Instructions Recorded phenazopyridine 100 mg tablet 100 mg PO TID PRN spasm 4 days #12 12/14/20 (Pyridium) tabs phenazopyridine 100 mg tablet 100 mg PO TID PRN spasm 4 days #12 12/14/20 (Pyridium) tabs tamsulosin 0.4 mg capsule 0.4 mg PO BEDTIME 14 days #14 caps 12/14/20 tamsulosin 0.4 mg capsule 0.4 mg PO BEDTIME 14 days #14 caps 12/14/20 tramadol 50 mg tablet 50 mg PO Q6H PRN pain (scale score 12/14/20 4-6) #14 tabs tramadol 50 mg tablet 50 mg PO Q6H PRN pain (scale score 12/14/20 4-6) #14 tabs lorazepam 2 mg tablet (Ativan) 1 mg PO Q6H PRN anxiety #12 tabs 12/15/20 oxycodone-acetaminophen 5 mg-325 1 tab PO Q8H PRN pain 7 days #10 12/15/20 mg tablet (Percocet) tabs pyridoxine (vitamin B6) 100 mg 100 mg PO DAILY 90 days #90 tabs 12/22/20 tablet oxycodone 5 mg tablet 5 mg PO Q6H PRN pain #20 tabs 06/30/22 tamsulosin 0.4 mg capsule (Flomax) 0.4 mg PO BEDTIME #7 caps 06/30/22 Allergies Allergy/AdvReac Type Severity Reaction Status Date / Time morphine Allergy Facial Verified 12/14/20 07:28 Swelling Review of Systems Review of Systems Yes all other systems are reviewed and are negative [facility] Past Medical History Medical History Kidney stones Social History Social History Alcohol intake: never Advance Directives: No Advance Directives Information Provided: No Physical Exam ED Vital Signs: Vital Signs - 24 hr 06/30/22 18:24 06/30/22 18:50 06/30/22 19:58 Temperature 98.5 F 98.5 F 96.5 F L Pulse Rate 71 67 52 Respiratory Rate 20 18 12 Blood Pressure 119/47 L 119/47 L 103/60 Pulse Oximetry 99 98 96 Oxygen Delivery Method Room Air Room Air Room Air 06/30/22 20:52 06/30/22 20:54 06/30/22 22:19 Temperature 98.7 F Pulse Rate 85 64 69 Respiratory Rate 24 H 22 H 11 L Blood Pressure 116/56 L 107/57 L Pulse Oximetry 94 99 100 Oxygen Delivery Method Room Air Room Air Room Air 06/30/22 22:29 Temperature 98.4 F Pulse Rate 76 Respiratory Rate 12 Blood Pressure 107/57 L Pulse Oximetry 97 Oxygen Delivery Method Room Air BMI result Body Mass Index 22.4 Appearance: Alert. Oriented X3. No acute distress. Eyes: PERRLA, No Nystagmus ENT: Pharynx normal. Oral Mucosa moist Neck: Normal inspection. Neck supple. CVS: Normal heart rate and rhythm. Pulses normal. Respiratory: No respiratory distress. Equal air entry bilateral, no wheezing/rales/rhonchi Abdomen: Soft and tender right lower quadrant. Bowel sounds are present, no mass palpable, R CVA tenderness + Skin: Skin warm and dry. Normal skin color. Normal skin turgor. Extremities: No lower extremity edema. No calf tenderness Neuro: Oriented X 3. No motor deficit. MDM - Abdominal Pain MDM Narrative Medical decision making narrative: Patient right mid ureteric 2-3 mm stone with mild hydronephrosis improved after pain medication and IV hydration discharge patient home on Flomax advised to follow-up with urologist Differential Diagnosis Differential diagnosis: Likely calculus of kidney Medical Records Attestation: I reviewed the patient's medical records. Lab Data Attestation: I reviewed the patient's lab results. Result diagrams: 06/30/22 18:39 06/30/22 18:39 Labs: Lab Results 06/30/22 06/30/22 06/30/22 Range/Units 18:39 18:39 20:37 WBC 5.0 (4.8-10.8) X10*3/uL RBC 4.77 (4.60-5.80) X10*6/uL Hgb 13.9 L (14.0-18.0) g/dl Hct 40.8 L (42.0-52.0) % MCV 85.5 (80.0-98.0) fL MCH 29.1 (27.0-33.0) pg MCHC 34.1 (31.0-36.0) g/dl RDW 11.3 (11.0-16.0) % Plt Count 160 (160-400) X10*3/uL MPV 10.9 (9.4-12.4) fL Immature Gran % (Auto) 0.2 (0.0-0.4) % Neut % (Auto) 53.4 (45-73) % Lymph % (Auto) 33.9 (20-40) % [place] % (Auto) 11.5 H (2-11) % Eos % (Auto) 0.6 (0-4) % Baso % (Auto) 0.4 (0-2) % Lymph # (Auto) 1.7 (1.2-4.9) X10*3/uL [place] # (Auto) 0.6 (0.1-1.2) X10*3/uL Eos # (Auto) 0.0 (0.0-0.4) X10*3/uL Baso # (Auto) 0.0 (0.0-0.2) X10*3/uL Abs Immat Gran (auto) 0.01 (0.00-0.03) X10*3/uL Absolute Neuts (auto) 2.7 (2.0-8.3) x10*3/uL Absolute Nucleated RBC 0.000 (0.0-0.012) X10*3/uL Nucleated RBC % (auto) 0.0 (0.0-0.2) /100WBC Sodium 141 (135-145) mmol/L Potassium 4.6 (3.3-5.1) mmol/L Chloride 105 (96-108) mmol/L Carbon Dioxide 25 (22-29) mmol/L Anion Gap 16 (12-20) BUN 15 (9-16) mg/dL Creatinine 0.72 (0.5-1.4) mg/dL Estim Creat Clear Calc 140.8 Estimated GFR > 60 Random Glucose 89 (60-115) mg/dL Calcium 9.2 D (8.4-10.2) mg/dL Urine Color Yellow Urine Appearance Cloudy Urine pH 8.5 (5.0-9.0) Ur Specific [place] 1.025 (1.005-1.025) Urine Protein Trace (Neg-Trace) mg/dL Urine Glucose (UA) Negative (Negative) mg/dL Urine Ketones Negative (Negative) mg/dL Urine Blood Large (3+) H (Negative) Urine Nitrite Negative (Negative) Ur Leukocyte Esterase Negative (Negative) Urine RBC >20 H (0-2) /HPF Urine WBC 0-5 (0-5) /HPF Ur Squamous Epith Cells 0-2 (0-2) /HPF Urine Bacteria None Seen (None Seen) Hyaline Casts 0-2 (0-2) /LPF Discharge Plan Discharge Clinical Impression: Kidney stone Patient Disposition: Home, Self-Care Instructions: Kidney Stones (ED) Additional Instructions: Drink plenty of fluids Pain medication as prescribed Follow with urologist if pain continues Prescriptions: New oxycodone 5 mg tablet 5 mg PO Q6H PRN (Reason: pain) Qty: 20 0RF Rx Instructions: Partial Fill upon patient request. tamsulosin [Flomax] 0.4 mg capsule 0.4 mg PO BEDTIME Qty: 7 0RF No Action oxycodone-acetaminophen [Percocet] 5-325 mg tablet 1 tab PO Q8H PRN (Reason: pain) 7 Days Qty: 10 0RF lorazepam [Ativan] 2 mg tablet 1 mg PO Q6H PRN (Reason: anxiety) Qty: 12 0RF phenazopyridine [Pyridium] 100 mg tablet 100 mg PO TID PRN (Reason: spasm) 4 Days Qty: 12 0RF tramadol 50 mg tablet 50 mg PO Q6H PRN (Reason: pain (scale score 4-6)) Qty: 14 0RF tamsulosin 0.4 mg capsule 0.4 mg PO BEDTIME 14 Days Qty: 14 0RF phenazopyridine [Pyridium] 100 mg tablet 100 mg PO TID PRN (Reason: spasm) 4 Days Qty: 12 0RF tramadol 50 mg tablet 50 mg PO Q6H PRN (Reason: pain (scale score 4-6)) Qty: 14 0RF tamsulosin 0.4 mg capsule 0.4 mg PO BEDTIME 14 Days Qty: 14 0RF pyridoxine (vitamin B6) 100 mg tablet 100 mg PO DAILY 90 Days Qty: 90 1RF Referrals: Dougie Mackay MD [Physician] - 1 week Interventions: ED Discharge Assessment Last Done: 06/30/22 23:29 Discharge Date/Time: 06/30/22 23:30 Print Language: Kyrgyz
[2022-06-30 18:44] LABS: MANUAL DIFF FLAG NO
[2022-06-30 18:45] LABS: Basophils Percent Auto 0.4 % (0-2); Eosinophils Percent Auto 0.6 % (0-4); Hematocrit 40.8 % (42.0-52.0); Hemoglobin 13.9 g/dl (14.0-18.0); Imm Gran Abs Auto 0.01 X10*3/uL (0.00-0.03); Imm Gran Pct Auto 0.2 % (0.0-0.4); Lymphocytes Absolute Auto 1.7 X10*3/uL (1.2-4.9); Lymphocytes Percent Auto 33.9 % (20-40); Mean Corpuscular HGB Conc 34.1 g/dl (31.0-36.0); Mean Corpuscular Hemoglobin 29.1 pg (27.0-33.0); Mean Corpuscular Volume 85.5 fL (80.0-98.0); Mean Platelet Volume 10.9 fL (9.4-12.4); Monocytes Absolute Auto 0.6 X10*3/uL (0.1-1.2); Monocytes Percent Auto 11.5 % (2-11); Neutrophils Absolute Auto 2.7 x10*3/uL (2.0-8.3); Neutrophils Percent Auto 53.4 % (45-73); Platelet Count 160 X10*3/uL (160-400); Red Blood Count 4.77 X10*6/uL (4.60-5.80); Red Cell Distribution Width 11.3 % (11.0-16.0)
[2022-06-30] MEDS: ondansetron HCL 4 MG/2 ML VIAL IVPUSH (18:45)
[2022-06-30] MEDS: HYDROmorphone HCl 1 MG/ML SYRINGE IVPUSH ×3 (18:45→20:49)
[2022-06-30] MEDS: Ketorolac Tromethamine 30 MG/ML VIAL IVPUSH (18:45)
--- NOTE | 2022-06-30 18:57 | PC.NURSE ---
pt presents with rt flank pain radiating to groin. pain 8/10. gave him ketoralac and dilaudid. pt also complains of N/V gave him zofran. IV by RN on rt forearm. labs drawn and sent to lab. pt now in CT scan
[2022-06-30 19:15] LABS: Anion Gap 16 (12-20); Blood Urea Nitrogen 15 mg/dL (9-16); Calcium 9.2 mg/dL (8.4-10.2); Carbon Dioxide 25 mmol/L (22-29); Chloride 105 mmol/L (96-108); Creatinine Clr Calc Pharmacy 140.8; Estimated Glomerular Filt Rate > 60; Glucose Random 89 mg/dL (60-115); Potassium 4.6 mmol/L (3.3-5.1); Sodium 141 mmol/L (135-145)
[2022-06-30] MEDS: 0.9 % Sodium Chloride 1,000 ML 999 ML IV (19:19)
[2022-06-30] MEDS: Tamsulosin HCL 0.4 MG CAPSULE PO (20:19)
--- NOTE | 2022-06-30 20:42 | PC.NURSE ---
Pt in 13H, restless, moving around in pain. Pt states I can't take the pain, it's too much please . Dr. Rowe aware, Dilaudid ordered and administered per NOV. Due to receiving multiple doses of pain medication, pt was moved into room 15 to be placed on the monitor.
[2022-06-30 20:43] LABS: Appearance Urine Cloudy; Color Urine Yellow; Glucose Urine UA Negative (Negative); Leukocyte Esterase Urine Negative (Negative); Nitrite Urine Negative (Negative); PH 8.5 (5.0-9.0); Specific Gravity - Urine 1.025 (1.005-1.025); UMIC TRIGGER UACC YES; Urine Blood Large (3+) (Negative); Urine Ketones Negative (Negative); Urine Protein Trace mg/dL (Neg-Trace)
[2022-06-30 20:46] LABS: Bacteria Urine None Seen (None Seen); Hyaline Casts Urine 0-2 /LPF (0-2); RBC Urine >20 /HPF (0-2); Squamous Epithelial Cell Urine 0-2 /HPF (0-2); WBC Urine 0-5 /HPF (0-5)
[2022-06-30] MEDS: dexAMETHasone sod phosphate 10 MG/ML VIAL IVPUSH (20:52)
--- NOTE | 2022-06-30 21:35 | PC.NURSE ---
Pt continues to be restless, moving around in bed, stating I feel like I am buzzing . Dr. Rowe aware, Versed 1mg ordered, administered per MAR.
[2022-06-30] MEDS: Midazolam HCl/PF 2 MG/2 ML VIAL 1 MG IVPUSH (21:40)
--- NOTE | 2022-06-30 22:33 | PC.NURSE ---
pt resting comfortably on stretcher at this time, states I feel much better now and more relaxed
== END 2022-06-30 23:30 | disposition home or self-care (01) ==
PROVIDERS: Emergency Provider Internal Medicine
DX: N20.0 Calculus of kidney (principal); N23 Unspecified renal colic; Z79.899 Other long term (current) drug therapy
CPT/HCPCS: 36415; 74176; 80048; 81001; 85025; 96374; 96375; 96376; 99284; J1100; J1170; J1885; J2250; J2405

== ENCOUNTER 2022-07-01 06:44 | Emergency (ER) | payer OTHER, SELFPAY ==
--- NOTE | 2022-07-01 06:54 | PC.NURSE ---
Pt. on ekg monitor tech at this time
[2022-07-01 07:09] VITALS: BP 120/80; PULSE 89; O2SAT 98
[2022-07-01 07:20] VITALS: BP 126/66; PULSE 71; RESP 15; TEMP 36.9; O2SAT 100
[2022-07-01 07:21] VITALS: BP 126/66; PULSE 64; RESP 17; TEMP 36.7; O2SAT 96; BMI 22.4
[2022-07-01] MEDS: ondansetron HCL 4 MG/2 ML VIAL IVPUSH (07:33)
[2022-07-01] MEDS: Ketorolac Tromethamine 15 MG/ML VIAL IVPUSH ×2 (07:34→09:16)
[2022-07-01] MEDS: fentaNYL citrate/PF 100 MCG/2 ML VIAL 50 MCG IVPUSH ×2 (07:36→08:26)
--- NOTE | 2022-07-01 08:01 | ED.ABDPAIN ---
HPI - Abdominal Pain General Chief Complaint: Abdominal Pain Stated Complaint: KIDNEY STONE PAIN, SUPPOSE TO HAVE SURGERY TODAY Time Seen by Provider: 07/01/22 06:48 Related Data Previous Rx's Medication Instructions Recorded phenazopyridine 100 mg tablet 100 mg PO TID PRN spasm 4 days #12 12/14/20 (Pyridium) tabs phenazopyridine 100 mg tablet 100 mg PO TID PRN spasm 4 days #12 12/14/20 (Pyridium) tabs tamsulosin 0.4 mg capsule 0.4 mg PO BEDTIME 14 days #14 caps 12/14/20 tamsulosin 0.4 mg capsule 0.4 mg PO BEDTIME 14 days #14 caps 12/14/20 tramadol 50 mg tablet 50 mg PO Q6H PRN pain (scale score 12/14/20 4-6) #14 tabs tramadol 50 mg tablet 50 mg PO Q6H PRN pain (scale score 12/14/20 4-6) #14 tabs lorazepam 2 mg tablet (Ativan) 1 mg PO Q6H PRN anxiety #12 tabs 12/15/20 oxycodone-acetaminophen 5 mg-325 1 tab PO Q8H PRN pain 7 days #10 12/15/20 mg tablet (Percocet) tabs pyridoxine (vitamin B6) 100 mg 100 mg PO DAILY 90 days #90 tabs 12/22/20 tablet oxycodone 5 mg tablet 5 mg PO Q6H PRN pain #20 tabs 06/30/22 tamsulosin 0.4 mg capsule (Flomax) 0.4 mg PO BEDTIME #7 caps 06/30/22 hydromorphone 2 mg tablet 2 mg PO Q6H PRN pain, moderate #10 07/01/22 (Dilaudid) tabs ondansetron HCl 4 mg tablet 4 mg PO Q8H PRN nausea 4 days #12 07/01/22 tabs Allergies Allergy/AdvReac Type Severity Reaction Status Date / Time morphine Allergy Facial Verified 12/14/20 07:28 Swelling PMFSH Past Medical History Medical History Kidney stones Social History Social History Alcohol intake: never Patient Tobacco Use Status: Never used Tobacco Use of substances other than those prescribed or required for medical reasons: No Advance Directives: No Advance Directives Information Provided: No Physical Exam ED Vital Signs: Vital Signs - 24 hr 07/01/22 07:20 07/01/22 07:21 07/01/22 08:24 Temperature 98.4 F 98.0 F Pulse Rate 71 64 65 Respiratory Rate 15 17 17 Blood Pressure 126/66 126/66 111/47 L Pulse Oximetry 100 96 100 Oxygen Delivery Method Room Air Room Air Room Air 07/01/22 10:10 07/01/22 11:37 Temperature 97.8 F 97.9 F Pulse Rate 64 65 Respiratory Rate 16 16 Blood Pressure 109/52 L 106/56 L Pulse Oximetry 100 100 Oxygen Delivery Method Room Air Room Air BMI result Body Mass Index 22.4 Course Reevaluation(s) Reevaluation #1: Patient became agitated and appeared to be having some sort of seizure activity. It was later determined that the patient was having a significant panic attack secondary to the pain. Patient was complaining about having security staff at the bedside. Patient's mother was in the room on face time with the patient's , both alleging that there was nothing being done for his pain despite the fact that he had already received 2 doses of fentanyl. Time: 09:00 Reevaluation #2: Patient is pain-free at this time. He did receive IV Dilaudid as well as IV lidocaine mixed with saline. Feels well enough to go home at this point. He will be in contact with Urology. Additionally, he will be given prescriptions for Zofran and p.o. Dilaudid at home (patient did receive a prescription last night for Vicodin, but states this has never worked for him). Time: 13:00 MDM - Abdominal Pain MDM Narrative Medical decision making narrative: 36-year-old male with past medical history of kidney stones. CT scan from last night revealed a 2-3 mm stone. The patient states he received Flomax as well as hydrocodone to go home at night. States the hydrocodone is not a medication that has ever worked for him, and therefore he returned today in significant amount of pain. See ED course above for medications given here, and the patient is currently pain-free and will be discharged home with instructions. I did secure chat with Dr. Mackay from Urology. The patient will be contacting him for follow-up. Differential Diagnosis Differential diagnosis: Likely calculus of kidney, pancreatitis and renal colic Medical Records Attestation: I reviewed the patient's medical records. Medical records narrative: Previous emergency department records were reviewed, as well as notes from previous serology visits in 2020 Discharge Plan Discharge Clinical Impression: Nephrolithiasis Patient Disposition: Home, Self-Care Instructions: Kidney Stones (ED), Hydronephrosis (ED) Prescriptions: New ondansetron HCl 4 mg tablet 4 mg PO Q8H PRN (Reason: nausea) 4 Days Qty: 12 0RF hydromorphone [Dilaudid] 2 mg tablet 2 mg PO Q6H PRN (Reason: pain, moderate) Qty: 10 0RF Rx Instructions: Partial Fill upon patient request. No Action oxycodone-acetaminophen [Percocet] 5-325 mg tablet 1 tab PO Q8H PRN (Reason: pain) 7 Days Qty: 10 0RF lorazepam [Ativan] 2 mg tablet 1 mg PO Q6H PRN (Reason: anxiety) Qty: 12 0RF phenazopyridine [Pyridium] 100 mg tablet 100 mg PO TID PRN (Reason: spasm) 4 Days Qty: 12 0RF tramadol 50 mg tablet 50 mg PO Q6H PRN (Reason: pain (scale score 4-6)) Qty: 14 0RF tamsulosin 0.4 mg capsule 0.4 mg PO BEDTIME 14 Days Qty: 14 0RF phenazopyridine [Pyridium] 100 mg tablet 100 mg PO TID PRN (Reason: spasm) 4 Days Qty: 12 0RF tramadol 50 mg tablet 50 mg PO Q6H PRN (Reason: pain (scale score 4-6)) Qty: 14 0RF tamsulosin 0.4 mg capsule 0.4 mg PO BEDTIME 14 Days Qty: 14 0RF oxycodone 5 mg tablet 5 mg PO Q6H PRN (Reason: pain) Qty: 20 0RF Rx Instructions: Partial Fill upon patient request. tamsulosin [Flomax] 0.4 mg capsule 0.4 mg PO BEDTIME Qty: 7 0RF pyridoxine (vitamin B6) 100 mg tablet 100 mg PO DAILY 90 Days Qty: 90 1RF Referrals: Mackay,Dougie M, MD [Physician] - 1 day (Call for follow up.)
[2022-07-01 08:24] VITALS: BP 111/47; PULSE 65; RESP 17; O2SAT 100
[2022-07-01] MEDS: 0.9 % Sodium Chloride 500 ML IV (08:49)
[2022-07-01] MEDS: HYDROmorphone HCl 1 MG/ML SYRINGE IVPUSH (09:16)
[2022-07-01] MEDS: Midazolam HCl/PF 2 MG/2 ML VIAL IVPUSH (09:16)
--- NOTE | 2022-07-01 09:45 | PC.NURSE ---
pt's ([phone]) [place] [facility] [place] this rn.
[2022-07-01 10:10] VITALS: BP 109/52; PULSE 64; RESP 16; TEMP 36.6; O2SAT 100
[2022-07-01 11:37] VITALS: BP 106/56; PULSE 65; RESP 16; TEMP 36.6; O2SAT 100
[2022-07-01] MEDS: LIDOCAINE HCL IV (12:05)
[2022-07-01] MEDS: SODIUM CHLORIDE 0.9% IV (12:05)
== END 2022-07-01 14:03 | disposition home or self-care (01) ==
PROVIDERS: Emergency Provider Emergency Medicine
DX: N20.0 Calculus of kidney (principal); F41.0 Panic disorder [episodic paroxysmal anxiety]; Z87.442 Personal history of urinary calculi
CPT/HCPCS: 96361; 96374; 96375; 96376; 99284; J1170; J1885; J2250; J2405; J3010